=== PATIENT | female | born 1975 | race Caucasian/White ===

== ENCOUNTER 2020-12-23 20:57 | Day surgery (SDCO) | payer OTHER ==
[~2020-12-23 20:57] MED LIST: ACETAMINOPHEN500 M1 PO; AMOXICILLIN500 MG PO
[2020-12-23 23:19] LABS: BASOPHIL 0.3 % (0-2); EOSINOPHIL 2.9 % (0-5); HCT 38.6 % (37.0-47.0); HGB 12.9 g/dl (12.5-16.0); LYMPHOCYTE 39.8 % (15-48); MCH 28.4 pg (25.0-31.0); MCHC 33.4 g/dL (32.0-36.0); MCV 84.8 fL (78.0-100.0); MPV 11.1 fL (6.0-9.5); NEUTROPHIL 47.9 % (41-80); NRBC 0; PLT 252 K/uL (150-400); RBC 4.55 M/uL (4.20-5.40); RDW 13.4 % (11.5-14.0); WBC 8.7 K/uL (4.0-10.5)
[2020-12-23 23:34] LABS: BUN/CREAT RATIO (CALC) 18.4 RATIO; CREATININE 0.87 mg/dL (0.51-0.95); POTASSIUM 3.7 mmol/L (3.5-5.1)
[2020-12-24 07:21] LABS: BILIRUBIN NEGATIVE (NEGATIVE); BLOOD 3+ Ery/uL (NEGATIVE); CLARITY CLEAR (CLEAR); COLOR YELLOW (YELLOW); GLUCOSE (U) NORMAL (NORMAL); LEUKOCYTES NEGATIVE Leu/uL (NEGATIVE); NITRITE NEGATIVE (NEGATIVE); PROTEIN NEGATIVE (NEGATIVE); UROBILINOGEN 0.2 mg/dL (0.2-1.0); pH 6.5 (5.0-9.0)
[2020-12-24 07:31] LABS: BACTERIA TRACE
[2020-12-24] MEDS ORDERED: PERCOCET 5-3251 EACH PO (12:02)
== END 2020-12-24 15:30 | disposition home or self-care (01) ==
LOC: FER 20:57 → FOR 12-24 08:30 → FMS 12-24 11:01
PROVIDERS: Emergency Medicine Emergency Medical Services; ADMIT Surgery
DX: K42.0 Umbilical hernia with obstruction, without gangrene (principal); F17.210 Nicotine dependence, cigarettes, uncomplicated; Z20.822 Contact with and (suspected) exposure to COVID-19
CPT/HCPCS: 36415; 74018; 80048; 81001; 83605; 84145; 85025; G0378; J0690; J1170; J2250; J2405; J2704; J2710; J3010; J3480; J7030; J7120; Q9967; U0002